=== PATIENT | female | born 1990 ===

== ENCOUNTER 2016-08-22 00:13 | Emergency (ER) | payer OTHER, SELFPAY ==
[2016-08-22 00:41] VITALS: BP 127/70; PULSE 84; RESP 18; TEMP 7; O2SAT 98
[2016-08-22] MEDS ORDERED: TDAP Vaccine 0.5 mL Syr IM ONE (01:05)
[2016-08-22] MEDS ORDERED: Lidocaine 1% Inj (20ml) IJ ONE (01:05)
[2016-08-22] MEDS ORDERED: Lidocaine 1% Inj (20ml) ONE (01:22)
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
[2016-08-22] MEDS ORDERED: Povidone Iodine Topical 10% Sol ONE (01:52)
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
== END 2016-08-22 02:53 | disposition home or self-care (01) ==
LOC: H.ER 00:13
DX: S41.112A Laceration without foreign body of left upper arm, initial encounter (principal); X99.1XXA Assault by knife, initial encounter; Y92.89 Other specified places as the place of occurrence of the external cause; Z87.891 Personal history of nicotine dependence

== ENCOUNTER 2018-07-03 00:41 | Emergency (ER) | payer OTHER ==
[2018-07-03] MEDS ORDERED: Sodium Chloride 0.9% 1,000 ML IV STA ×3 (01:08→02:07)
--- NOTE | 2018-07-03 01:35 | ED PDOC ---
Upper Extremity Pain/Injury Time Seen by Provider: 07/03/18 01:01 Chief Complaint (Nursing): Upper Extremity Problem/Injury Chief Complaint (Provider): Hand Laceration History Per: Family () History/Exam Limitations: intoxication Onset/Duration Of Symptoms: Hrs Current Symptoms Are (Timing): Still Present Additional Complaint(s): 28 year old female presents to the ED for an evaluation of left wrist laceration. As per , patient sustained a laceration while sharpening a kitchen knife and bleed a lot with loss of consciousness. She had a couple of beers. Otherwise, the denies SI/HI. PMD: no family provider Past Medical History Reviewed: Historical Data, Nursing Documentation, Vital Signs Vital Signs: Last Vital Signs Temp 98.6 F 07/03/18 00:53 Pulse 56 L 07/03/18 01:00 Resp 8 L 07/03/18 01:00 BP 59/34 L 07/03/18 01:00 Pulse Ox 100 07/03/18 01:00 - Medical History PMH: No Chronic Diseases - Surgical History Surgical History: (x4) - Family History Family History: States: Unknown Family Hx - Immunization History Hx Tetanus Toxoid Vaccination: No Hx Influenza Vaccination: No Hx Pneumococcal Vaccination: No - Home Medications Home Medications: Ambulatory Orders Medication Instructions Recorded Permethrin 5% [Permethrin 5% Cream] 60 gm EXT ONCE #1 tube 06/25/14 Fluticasone Nasal [Flonase] 0.05 mg NS DAILY #1 spr 10/28/15 Loratadine/Pseudoephedrine 1 each PO DAILY #20 tab.er.24h 10/28/15 [Claritin-D 24 Hour Tablet] Cephalexin [cephalexin] 500 mg PO Q6 #12 cap 08/22/16 - Allergies Allergies/Adverse Reactions: Allergies Allergy/AdvReac Type Severity Reaction Status Date / Time No Known Allergies Allergy Verified 07/03/18 00:54 Review of Systems Review Of Systems: ROS cannot be obtained secondary to pt's inabilty to answer questions. Physical Exam - Reviewed Nursing Documentation Reviewed: Yes Vital Signs Reviewed: Yes - Physical Exam Appears: Positive for: Well (ni visible injury, responsive ), Non-toxic Head Exam: Positive for: ATRAUMATIC, NORMAL INSPECTION (no visible trauma to the head), NORMOCEPHALIC Skin: Positive for: Normal Color, Warm, Dry. Negative for: Rash Eye Exam: Positive for: EOMI, Normal appearance, PERRL ENT: Positive for: Normal ENT Inspection Neck: Positive for: Normal, Painless ROM Cardiovascular/Chest: Positive for: Regular Rate, Rhythm. Negative for: Murmur Respiratory: Positive for: Normal Breath Sounds. Negative for: Decreased Breath Sounds, Respiratory Distress Gastrointestinal/Abdominal: Positive for: Normal Exam, Soft. Negative for: Tenderness Back: Positive for: Normal Inspection, Other (no injury). Negative for: L CVA Tenderness, R CVA Tenderness Extremity: Positive for: Other (laceration on the left wrist) Neurologic/Psych: Positive for: Alert, Oriented (x3) - ECG O2 Sat by Pulse Oximetry: 100 (RA) Pulse Ox Interpretation: Normal Medical Decision Making Medical Decision Making: Time: 106 Impression: Workup for hypotensive in context of bleeding. Workup for intoxication. Will place consult for plastic surgeon for surgeon. Will order EKG, labs, including alcohol level and reassess patient. Plan: Type and screen BBK Alcohol serum BMP CBC w/ differential PTT Prothrombin time Glucose, POC Normal saline 1000 mls/hr UA Reevaluation 014 Discussed case with ophthalmology surgical technician. She states she is at another hospital and will come in. Scribe Attestation: Documented by Willem Scott, acting as a scribe for Karli Mcclendon MD Provider Scribe Attestation: All medical record entries made by the Scribe were at my direction and personally dictated by me. I have reviewed the chart and agree that the record accurately reflects my personal performance of the history, physical exam, medical decision making, and the department course for this patient. I have also personally directed, reviewed, and agree with the discharge instructions and disposition. Disposition - Disposition Forms: [facility] (Albanian)
[2018-07-03 01:42] LABS: BASO # 0.1 K/uL (0.0-0.2); BASO % 1.3 % (0.0-2.0); EOS % 0.1 % (0.0-4.0); HEMOGLOBIN 9.9 g/dL (12.0-16.0); LYMPH # 1.9 K/uL (1.0-4.3); LYMPH % 30.9 % (20.0-40.0); MEAN CELL VOLUME 79.2 fl (81.0-99.0); MEAN CORPUSCULAR HEMOGLOBIN 25.5 pg (27.0-31.0); MEAN CORPUSCULAR HGB CONC 32.3 g/dL (33.0-37.0); MEAN PLATELET VOLUME 8.8 fl (7.2-11.7); MONO # 0.3 K/uL (0.0-0.8); MONO % 4.9 % (0.0-10.0); NEUT # 3.9 K/uL (1.8-7.0); NEUT % 62.8 % (50.0-75.0); RBC 3.88 Mil/uL (3.80-5.20); RED CELL DISTRIBUTION WIDTH 18.6 % (11.5-14.5); WHITE BLOOD COUNT 6.2 K/uL (4.8-10.8)
[2018-07-03 01:53] LABS: BLOOD UREA NITROGEN 8 mg/dl (7-17); GFR NON-AFRICAN AMERICAN > 60
[2018-07-03] MEDS ORDERED: Lidocaine 1% Inj (20ml) IJ ONE (02:33)
--- NOTE | 2018-07-03 02:35 | CP.PCM.CON ---
History of Present Illness - History of Present Illness History of Present Illness: General surgery consult note for Dr. Ester Jin, PGY-2 Pt seen/examined at bedside. Slovenian interpretor Pierre #[id number]. 28F w/no sig PMN consulted for L wrist laceration. Pt reports she was at work tonight, when she slipped while using a knife, resulting in a laceration to her left wrist, + LOC. Pt denies ETOH or other substance use. Denies numbness or tingling of fingers, loss of sensation, loss of motor function of affected hand. Denies CP, SOB, dizziness, vision changes, CATES, changes to bowel or bladder habits, other complaints. Pt reports last tetanus shot was 1 month ago. In ED- pt with ETOH of 226. Was resuscitated due to hypotension and tachycardia. Hgb now 9.9. PMH: Denies PSH: All:NKDA SH: Denies ETOH, tobacco or illicit drug use PMD: Denies Review of Systems - Review of Systems All systems: reviewed and no additional remarkable complaints except - Constitutional Constitutional: absent: Chills, Fever - EENT Eyes: absent: Change in Vision Ears: absent: Dizziness Nose/Mouth/Throat: absent: Sore Throat - Cardiovascular Cardiovascular: absent: Chest Pain - Gastrointestinal Gastrointestinal: absent: Nausea, Vomiting - Genitourinary Genitourinary: absent: Change in Urinary Stream - Musculoskeletal Musculoskeletal: absent: Numbness, Tingling - Neurological Neurological: absent: Dizziness - Psychiatric Psychiatric: absent: Suicidal Ideation Past Patient History - Past Medical History & Family History Past Medical History?: No - Past Social History Smoking Status: Never Smoked - CARDIAC Hx Cardiac Disorders: No - PULMONARY Hx Respiratory Disorders: No - NEUROLOGICAL Hx Neurological Disorder: No - HEENT Hx HEENT Problems: No - ENDOCRINE/METABOLIC Hx Endocrine Disorders: No - HEMATOLOGICAL/ONCOLOGICAL Hx Blood Disorders: No - INTEGUMENTARY Hx Dermatological Problems: No - MUSCULOSKELETAL/RHEUMATOLOGICAL Hx Musculoskeletal Disorders: No Hx Falls: No - GASTROINTESTINAL Hx Gastrointestinal Disorders: No - GENITOURINARY/GYNECOLOGICAL Hx Genitourinary Disorders: No - PSYCHIATRIC Hx Psychophysiologic Disorder: No Hx Substance Use: No - SURGICAL HISTORY Hx Surgeries: Yes Hx Section: Yes (x 4) - ANESTHESIA Hx Anesthesia: Yes Hx Anesthesia Reactions: No Hx Malignant Hyperthermia: No Meds Allergies/Adverse Reactions: Allergies Allergy/AdvReac Type Severity Reaction Status Date / Time No Known Allergies Allergy Verified 07/03/18 00:54 - Medications Medications: Current Medications Sodium Chloride (Sodium Chloride 0.9%) 1,000 mls @ 1,000 mls/hr IV .Q1H STA Stop: 07/03/18 03:06 Physical Exam - Constitutional Appears: Non-toxic, No Acute Distress - Head Exam Head Exam: ATRAUMATIC, NORMAL INSPECTION, NORMOCEPHALIC - Eye Exam Eye Exam: EOMI, Normal appearance - ENT Exam ENT Exam: Mucous Membranes Moist, Normal Exam - Neck Exam Neck exam: Positive for: Full Rom - Respiratory Exam Respiratory Exam: NORMAL BREATHING PATTERN - Cardiovascular Exam Cardiovascular Exam: REGULAR RHYTHM - GI/Abdominal Exam GI & Abdominal Exam: Soft - Extremities Exam Additional comments: Left wrist laceration, approximately 4 cm long, superficial - does not involve tendons or blood vessels - Neurological Exam Neurological exam: Alert - Psychiatric Exam Psychiatric exam: Normal Affect, Normal Mood - Skin Skin Exam: Dry, Normal Color, Warm Results - Vital Signs Recent Vital Signs: Last Vital Signs Temp 98.6 F 07/03/18 00:53 Pulse 72 07/03/18 01:23 Resp 13 07/03/18 01:23 BP 82/54 L 07/03/18 01:23 Pulse Ox 100 07/03/18 01:51 - Labs Result Diagrams: 07/03/18 01:10 07/03/18 01:10 Labs: Laboratory Results - last 24 hr 07/03/18 07/03/18 07/03/18 01:10 01:10 01:10 WBC 6.2 RBC 3.88 Hgb 9.9 L Hct 30.7 L MCV 79.2 L MCH 25.5 L MCHC 32.3 L RDW 18.6 H Plt Count 338 MPV 8.8 Neut % (Auto) 62.8 Lymph % (Auto) 30.9 [place] % (Auto) 4.9 Eos % (Auto) 0.1 Baso % (Auto) 1.3 Neut # (Auto) 3.9 Lymph # (Auto) 1.9 [place] # (Auto) 0.3 Eos # (Auto) 0.0 Baso # (Auto) 0.1 Sodium 138 Potassium 3.5 L Chloride 102 Carbon Dioxide 18 L Anion Gap 22 H BUN 8 Creatinine 0.5 L Est GFR ( Amer) > 60 Est GFR (Non-Af Amer) > 60 POC Glucose (mg/dL) 124 H Random Glucose 122 H Calcium 9.0 Alcohol, Quantitative 226 H Assessment & Plan - Assessment and Plan (Free Text) Assessment: 28F w/Left wrist laceration, + ETOH Plan: Plan for Bedside repair of laceration of left wrist Consent in chart DW Dr. Stokes - Date & Time Date: 07/03/18 Time: 02:40
[2018-07-03] MEDS ORDERED: Lidocaine Hydrochloride 1% 10 ML ONE (02:43)
[2018-07-03] MEDS ORDERED: Povidone Iodine Oint 10% Foilpak UD ONE (02:58)
[2018-07-03 03:04] LABS: PROTHROMBIN TIME 11.5 Seconds (9.8-13.1)
[2018-07-03 03:07] LABS: PARTIAL THROMBOPLASTIN TIME 26.8 Seconds (25.6-37.1)
--- NOTE | 2018-07-03 03:19 | PCM.PROC ---
Procedures Attestation:: I certify that I have explained the specified Operation(s) or Procedure(s), risks, benefits and reasonable alternatives to the Patient and/or other person responsible. The opportunity was given to ask questions and all questions answered - Laceration lidocaine 1% simple, single layer linear irrigated extensively left other 4-0 other local infiltration horizontal mattress Site: other (left wrist) Side (if applicable): left Size (cm): 4 (cm) Description: linear Depth: simple, single layer Anesthesia used: lidocaine 1% Anesthesia technique: local infiltration Amount (mLs): 10 Pre-repair: irrigated extensively Skin layer closed with: other (Prolene) Size: 4-0 Number of sutures: 3 Technique: horizontal mattress
[2018-07-03 05:24] VITALS: O2SAT 99
[2018-07-03 06:22] VITALS: BP 128/64; PULSE 72; RESP 20; TEMP 98.4
[2018-07-03 06:22] LABS: SQUAMOUS EPITHIAL 2 /hpf (0-5); URINE BACTERIA RARE (<OCC); URINE BILIRUBIN NEGATIVE (NEGATIVE); URINE BLOOD MODERATE (NEGATIVE); URINE CLARITY SLIGHTY-CLOUDY (Clear); URINE COLOR STRAW (YELLOW); URINE GLUCOSE (UA) NEG (NEGATIVE); URINE LEUKOCYTE ESTERASE SMALL Leu/uL (Negative); URINE PROTEIN NEGATIVE (NEGATIVE); URINE UROBILINOGEN 0.2-1.0 mg/dL (0.2-1.0)
--- NOTE | 2018-07-07 06:21 | CARD ---
APPROVED REPORT Date of service: 07/03/2018 EKG Measurement Heart [id number] ID [id number] <Conclusion> Normal sinus rhythm Prolonged QT Abnormal ECG
== END 2018-07-03 06:22 | disposition home or self-care (01) ==
LOC: H.ER 00:41
DX: S61.512A Laceration without foreign body of left wrist, initial encounter (principal); F10.129 Alcohol abuse with intoxication, unspecified; W26.0XXA Contact with knife, initial encounter
CPT/HCPCS: 12002; 80048; 80320; 81003; 82948; 85025; 85610; 85730; 86850; 86900; 99284; J7030